=== PATIENT | female | born 1990 | race Caucasian/White ===

== ENCOUNTER → 2017-10-02 | Outpatient (CLI) | payer MEDICAID ==
[2017-10-02 12:23] LABS: ABSOLUTE EOSINOPHILS # (AUTO) 0.2 10^3/uL (0.0-0.6); ABSOLUTE LYMPHOCYTES (AUTO) 2.1 10^3/uL (0.5-4.7); ABSOLUTE MONOCYTES (AUTO) 0.6 10^3/uL (0.1-1.4); ABSOLUTE NEUT (AUTO) 5.9 10^3/uL (1.7-8.2); BASOPHILS % (AUTO) 0.4 % (0-2); EOSINOPHILS % (AUTO) 2.4 % (0-6); HEMATOCRIT 47.3 % (36.0-47.0); HGB HCT DIFFERENCE 0.7; MEAN CORPUSCULAR HGB CONC 33.9 g/dL (32.0-36.0); MEAN CORPUSCULAR VOLUME 95 fl (80-97); MONOCYTES % (AUTO) 6.7 % (3-13); RED CELL DISTRIBUTION WIDTH 14.3 % (11.5-14.0); SEGMENTED NEUTROPHILS % (AUTO) 66.5 % (42-78); WHITE BLOOD COUNT 8.9 10^3/uL (4.0-10.5)
[2017-10-02 12:53] LABS: ALANINE AMINOTRANSFERASE 29 U/L (9-52); ALBUMIN 3.1 g/dL (3.5-5.0); ALKALINE PHOSPHATASE 50 U/L (38-126); ANION GAP 8 (5-19); ASPARTATE AMINO TRANSFERASE 19 U/L (14-36); BILIRUBIN,DIRECT 0.1 mg/dL (0.0-0.4); BILIRUBIN,TOTAL 0.5 mg/dL (0.2-1.3); BLOOD UREA NITROGEN 7 mg/dL (7-20); CALCIUM 8.5 mg/dL (8.4-10.2); CARBON DIOXIDE 27 mmol/L (22-30); CHLORIDE 106 mmol/L (98-107); CHOLESTEROL 163.21 mg/dL (0-200); CREATININE RESULT 0.68 mg/dL (0.52-1.25); Direct HDL 41 mg/dL (>40); GLUCOSE 71 mg/dL (75-110); POTASSIUM 4.2 mmol/L (3.6-5.0); TOTAL PROTEIN 5.3 g/dL (6.3-8.2); TRIGLYCERIDES 56 mg/dL (<150)
[2017-10-02 13:04] LABS: DIRECT LDL 120 mg/dL (<100)
== END ==
LOC: OD 11:11
PROVIDERS: ATTEND Family Medicine Geriatric Medicine
DX: E66.3 Overweight (principal); Z86.711 Personal history of pulmonary embolism; Z87.891 Personal history of nicotine dependence; Z29.9 Encounter for prophylactic measures, unspecified; Z79.899 Other long term (current) drug therapy
CPT/HCPCS: 36415; 80053; 80061; 84443; 85025

== ENCOUNTER → 2017-10-18 | Outpatient (CLI) | payer MEDICAID ==
[2017-10-18 14:28] LABS: ABSOLUTE EOSINOPHILS # (AUTO) 0.1 10^3/uL (0.0-0.6); ABSOLUTE LYMPHOCYTES (AUTO) 2.1 10^3/uL (0.5-4.7); ABSOLUTE MONOCYTES (AUTO) 0.7 10^3/uL (0.1-1.4); ABSOLUTE NEUT (AUTO) 7.1 10^3/uL (1.7-8.2); BASOPHILS % (AUTO) 0.4 % (0-2); EOSINOPHILS % (AUTO) 0.8 % (0-6); HEMATOCRIT 40.5 % (36.0-47.0); HEMOGLOBIN 13.6 g/dL (12.0-15.5); LYMPHOCYTES % (AUTO) 20.8 % (13-45); MEAN CORPUSCULAR HEMOGLOBIN 31.6 pg (27.0-33.4); MEAN CORPUSCULAR HGB CONC 33.6 g/dL (32.0-36.0); MEAN CORPUSCULAR VOLUME 94 fl (80-97); PLATELET COUNT 239 10^3/uL (150-450); RED BLOOD COUNT 4.31 10^6/uL (3.72-5.28); RED CELL DISTRIBUTION WIDTH 13.8 % (11.5-14.0); TOTAL CELLS COUNTED % (AUTO) 100 %
== END ==
LOC: OD 13:27
PROVIDERS: ATTEND Family Medicine Geriatric Medicine
DX: R79.89 Other specified abnormal findings of blood chemistry (principal); R71.8 Other abnormality of red blood cells; Z79.899 Other long term (current) drug therapy
CPT/HCPCS: 36415; 85025

== ENCOUNTER 2017-10-26 09:38 | Day surgery (SDC) | payer MEDICAID ==
[~2017-10-26 09:38] MED LIST: LACTATED RINGERS 1000 ML IV PRN; LIDOCAINE 0.5% INJ-PF (5 MG/ML) 50 ML SDV SUBCUT PRN
[2017-10-26] MEDS ORDERED: BUPIVACAINE HCL 0.25 % INJ/PF (2.5 MG/1 ML) 30 ML VIAL ONE (09:47)
[2017-10-26] MEDS ORDERED: SCOPOLAMINE HYDROBROMIDE 1.5 MG PATCH.TD72 ONE (10:45)
[2017-10-26] MEDS ORDERED: FAMOTIDINE INJ/PF 20 MG/2 ML SDV IV ONE (10:45)
[2017-10-26] MEDS ORDERED: EPHEDRINE SULFATE INJ 50 MG/1 ML AMPULE ONE (10:47)
[2017-10-26] MEDS ORDERED: FENTANYL CITRATE INJ/PF 100 MCG/2 ML AMPUL ONE ×3 (10:47)
[2017-10-26] MEDS ORDERED: MIDAZOLAM 2 MG/2 ML INJ ONE (10:47)
[2017-10-26] MEDS ORDERED: ALBUTEROL SULFATE 0.083% NEB 2.5 MG/3 ML AMPUL NEB ONE (10:48)
[2017-10-26] MEDS ORDERED: ONDANSETRON HCL INJ/PF 4 MG/2 ML SDV ONE (10:48)
[2017-10-26] MEDS ORDERED: PROPOFOL INJ 200 MG/20 ML VIAL IV ONE (10:48)
[2017-10-26] MEDS ORDERED: PROMETHAZINE HCL INJ 25 MG/1 ML VIAL IV PRN (11:25)
[2017-10-26] MEDS ORDERED: FENTANYL CITRATE INJ/PF 100 MCG/2 ML AMPUL IV PRN ×3 (11:25)
[2017-10-26] MEDS ORDERED: DIPHENHYDRAMINE HCL 50 MG/ML VIAL IV PRN (11:25)
[2017-10-26] MEDS ORDERED: ACETAMINOPHEN 100 ML IV ONE (11:55)
[2017-10-26] MEDS: HYDROMORPHONE HCL INJ/PF 2 MG/ML AMPULE ONE ×2 (12:00→12:10)
--- NOTE | 2017-10-26 12:03 | OPERATIVE REPORT E ---
Operative Report NAME: RENEE GOMEZ : 1990 AGE: 27Y DATE OF SURGERY: 10/26/2017 ROOM: PREOPERATIVE DIAGNOSIS: Desires sterilization. POSTOPERATIVE DIAGNOSIS: Desires sterilization. PROCEDURES: 1. Bilateral tubal occlusion used on Filshie clips. 2. Removal of IUD. SURGEON: Gab FISH M.D. ESTIMATED BLOOD LOSS: Negligible. TISSUE REMOVED OR ALTERED: No tissue was removed. ANESTHESIA: General. DESCRIPTION OF PROCEDURE: The patient was placed in the dorsal lithotomy position, prepped and draped in a sterile fashion. A speculum was placed, cervix was visualized and grasped with a single-toothed tenaculum. The IUD was removed. Hulka tenaculum was placed. Single-toothed tenaculum was removed. Speculum was removed. Attention was turned to the abdomen where a subumbilical *------* incision was made. The trocar was introduced and was placed in the abdomen. I then introduced the laparoscope with visualization of tubes, uterus, and ovaries. All appeared to be normal. A right fallopian tube was banded in the mid portion using Filshie clip with good purchase of tissue being noted. Procedure was repeated on the left again with a good *------* of tissue being noted. No other abnormalities were noted. The laparoscope was removed and deflated. Trocar sleeve was removed. The incision closed with 0 Vicryl for the fascia, 4-0 Vicryl subcu for the skin, and patient tolerated the procedure well and was taken to the recovery room in good condition. Noted that after speculum was removed, bladder was drained with an in-and-out cath. DICTATING PHYSICIAN: Gab FISH M.D. [id number] PHY#: [id number] ID: [id number] JOB#: [id number] ACCT: [id number] cc:Gab FISH M.D. >
[2017-10-26] MEDS ORDERED: OXYCODONE-ACETAMINOPHEN 5-325 MG TABLET PO PRN (12:32)
[2017-10-26] MEDS ORDERED: ONDANSETRON 4 MG TAB.RAPDIS PO PRN (12:34)
[2017-10-26] MEDS ORDERED: IBUPROFEN 800 MG TABLET PO SCH (14:00)
[2017-10-26 15:53] VITALS: BP 110/72
== END 2017-10-26 14:15 | disposition home or self-care (01) ==
LOC: OROUT 09:38
PROVIDERS: ATTEND Obstetrics & Gynecology Gynecology
PROC: 0UPD7HZ Removal of Contraceptive Device from Uterus and Cervix, Via Natural or Artificial Opening (ICD-10-PCS; 2017-10-26)
PROC: 0UL74CZ Occlusion of Bilateral Fallopian Tubes with Extraluminal Device, Percutaneous Endoscopic Approach (ICD-10-PCS; principal; 2017-10-26 11:30)
DX: Z30.2 Encounter for sterilization (principal); Z87.891 Personal history of nicotine dependence; Z86.711 Personal history of pulmonary embolism; Z30.432 Encounter for removal of intrauterine contraceptive device
CPT/HCPCS: 81025; 88300 ×2; 58671; 58301; J2250; J3010; J3490; J1170; J2405; J2704; S0028; J0131; 851

== ENCOUNTER 2017-10-27 12:54 | Emergency (ER) | payer MEDICAID ==
[2017-10-27 13:01] VITALS: BP 113/60
--- NOTE | 2017-10-27 14:10 | ER Document Report ---
ED Medical Screen (RME) - General Chief Complaint: Chest Pain Stated Complaint: CHEST PAIN Time Seen by Provider: 10/27/17 14:01 Notes: 27-year-old female patient had IUD removed and tubes tied yesterday. Done under general anesthesia. Woke up today with anterior chest pain going into the neck and jaws. Pain in the upper thoracic scapular back region. Past medical history significant for pulmonary emboli 2011, source not identified per patient. Brief exam shows tenderness to palpate the left parasternal region of the chest. Some pain to left anterior chest. Very tender to palpate the upper medial scapular muscles and upper thoracic paravertebral muscles. I have greeted and performed a rapid initial assessment of this patient. A comprehensive ED assessment and evaluation of the patient, analysis of test results and completion of the medical decision making process will be conducted by additional ED providers. TRAVEL OUTSIDE OF THE [place] IN LAST 30 DAYS: No - Related Data Allergies/Adverse Reactions: No Known Drug Allergies Allergy (Verified 10/27/17 12:55) Past Medical History - Social History Frequency of alcohol use: Occasional Drug Abuse: None - Past Medical History Cardiac Medical History: Reports: Hx Pulmonary Embolism Renal/ Medical History: Denies: Hx Peritoneal Dialysis Past Surgical History: Reports: Hx Section, Hx Tonsillectomy, Hx Tubal Ligation - Immunizations Immunizations up to date: Yes Hx Diphtheria, Pertussis, Tetanus Vaccination: Yes Physical Exam - Vital signs Vitals: Temp Pulse Resp BP Pulse Ox 97.7 F 80 12 113/60 100 10/27/17 13:00 10/27/17 13:00 10/27/17 13:00 10/27/17 13:00 10/27/17 13:00 Course - Vital Signs Vital signs: Temp Pulse Resp BP Pulse Ox 97.7 F 80 12 113/60 100 10/27/17 13:00 10/27/17 13:00 10/27/17 13:00 10/27/17 13:00 10/27/17 13:00
[2017-10-27 14:40] LABS: ABSOLUTE EOSINOPHILS # (AUTO) 0.1 10^3/uL (0.0-0.6); ABSOLUTE LYMPHOCYTES (AUTO) 2.2 10^3/uL (0.5-4.7); ABSOLUTE MONOCYTES (AUTO) 0.6 10^3/uL (0.1-1.4); ABSOLUTE NEUT (AUTO) 5.5 10^3/uL (1.7-8.2); BASOPHILS % (AUTO) 0.5 % (0-2); EOSINOPHILS % (AUTO) 0.7 % (0-6); HEMATOCRIT 44.1 % (36.0-47.0); HEMOGLOBIN 14.6 g/dL (12.0-15.5); LYMPHOCYTES % (AUTO) 26.2 % (13-45); MEAN CORPUSCULAR HEMOGLOBIN 31.6 pg (27.0-33.4); MEAN CORPUSCULAR HGB CONC 33.2 g/dL (32.0-36.0); MEAN CORPUSCULAR VOLUME 95 fl (80-97); MONOCYTES % (AUTO) 6.6 % (3-13); PLATELET COUNT 235 10^3/uL (150-450); RED BLOOD COUNT 4.64 10^6/uL (3.72-5.28); RED CELL DISTRIBUTION WIDTH 13.6 % (11.5-14.0); TOTAL CELLS COUNTED % (AUTO) 100 %; WHITE BLOOD COUNT 8.3 10^3/uL (4.0-10.5)
[2017-10-27 14:42] LABS: APPEARANCE,URINE CLEAR; BILIRUBIN,URINE NEGATIVE (NEGATIVE); COLOR,URINE YELLOW; GLUCOSE, URINE NEGATIVE (NEGATIVE); KETONES,URINE NEGATIVE (NEGATIVE); LEUKOCYTE ESTERASE,URINE NEGATIVE (NEGATIVE); NITRITE,URINE NEGATIVE (NEGATIVE); PROTEIN,URINE NEGATIVE (NEGATIVE); URINE SPECIFIC GRAVITY 1.013; UROBILINOGEN,URINE NEGATIVE mg/dL (<2.0)
--- NOTE | 2017-10-27 14:47 | RADIOLOGY REPORT (SQ) ---
EXAM DESCRIPTION: CTA CHEST COMPLETED DATE/TIME: 10/27/2017 2:37 pm REASON FOR STUDY: chest,neck,back pain,s/p pelvic surgery,prior PE COMPARISON: None. TECHNIQUE: CT scan of the chest performed using helical scanning technique with dynamic intravenous contrast injection. Images reviewed with lung, soft tissue and bone windows. Reconstructed coronal and sagittal MPR images reviewed. Additional 3 dimensional post-processing performed to develop Maximal Intensity Projection images (MN P). All images stored on PACS. All CT scanners at this facility use dose modulation, iterative reconstruction, and/or weight based d osing when appropriate to reduce radiation dose to as low as reasonably achievable (ALARA). [facility]: Dose Right [facility]: CareDose [facility]: Dose Right [facility]: Teradose 4D [facility]: [employer] CONTRAST TYPE AND DOSE: contrast/concentration: Isovue 370.00 mg/ml; Total Contrast Delivered: 72.0 ml; Total Saline Delivered: 110.0 ml Contrast bolus optimized for the pulmonary arteries. Not diagnostic for the aorta. RENAL FUNCTION: None required. The patient is less than 50 years old. RADIATION DOSE: CT Rad equipment meets quality standard of care and radiation dose reduction techniq ues were employed. CTDIvol: 15.4 - 16.5 mGy. DLP: 615 mGy-cm. . LIMITATIONS: None. FINDINGS: LUNGS AND PLEURA: No masses, infiltrates, pneumothorax. No pleural effusions, calcificati ons. AORTA AND GREAT VESSELS: No aneurysm. Contrast bolus not optimized for the aorta. HEART: No pericardial effusion. No significant coronary artery calcifications. PULMONARY ARTERIES: No emboli visualized in the main pulmonary arteries or the segmental branches. HILAR AND MEDIASTINAL STRUCTURES: No identified masses or abnormal nodes. HARDWARE: None in the chest. UPPER ABDOMEN: Small amount of free intraperitoneal air. No additional acute or significant findings . THYROID AND OTHER SOFT TISSUES: No masses. No adenopathy. BONES: No acute or significant finding. 3D MIPS: Confirm above findings. OTHER: No other significant finding. IMPRESSION: NORMAL CTA OF THE CHEST. NO PULMONARY EMBOLI. SMALL AMOUNT OF FREE INTRAPERITONEAL AIR LIKELY WITHIN NORMAL LIMITS FOR RECENT SURGERY. COMMENT: Quality ID # [id number]: Final reports with documentation of one or more dose reduction techniques (e.g., Automated exposure control, adjustment of the mA and/or kV according to patient size, use of iterative reconstruction technique) TECHNICAL DOCUMENTATION: JOB ID: [id number] [employer]- All Rights Reserved
[2017-10-27 14:52] LABS: ALANINE AMINOTRANSFERASE 29 U/L (9-52); ALBUMIN 3.9 g/dL (3.5-5.0); ALKALINE PHOSPHATASE 42 U/L (38-126); ANION GAP 9 (5-19); ASPARTATE AMINO TRANSFERASE 23 U/L (14-36); BILIRUBIN,DIRECT 0.1 mg/dL (0.0-0.4); BILIRUBIN,TOTAL 0.4 mg/dL (0.2-1.3); BLOOD UREA NITROGEN 8 mg/dL (7-20); CALCIUM 9.3 mg/dL (8.4-10.2); CARBON DIOXIDE 28 mmol/L (22-30); CHLORIDE 102 mmol/L (98-107); GLUCOSE 77 mg/dL (75-110); POTASSIUM 4.5 mmol/L (3.6-5.0); SODIUM 139.1 mmol/L (137-145)
--- NOTE | 2017-10-27 15:11 | ER Document Report ---
ED General - General Chief Complaint: Chest Pain Stated Complaint: CHEST PAIN Time Seen by Provider: 10/27/17 14:01 Mode of Arrival: Ambulatory Information source: Patient, [facility] Records TRAVEL OUTSIDE OF THE [place] IN LAST 30 DAYS: No - Related Data Allergies/Adverse Reactions: No Known Drug Allergies Allergy (Verified 10/27/17 12:55) Past Medical History - Social History Smoking Status: Former Smoker Frequency of alcohol use: Occasional Drug Abuse: None Family History: Reviewed & Not Pertinent Patient has suicidal ideation: No Patient has homicidal ideation: No - Past Medical History Cardiac Medical History: Reports: Hx Pulmonary Embolism Renal/ Medical History: Denies: Hx Peritoneal Dialysis Past Surgical History: Reports: Hx Section, Hx Tonsillectomy, Hx Tubal Ligation - Immunizations Immunizations up to date: Yes Hx Diphtheria, Pertussis, Tetanus Vaccination: Yes Physical Exam - Vital signs Vitals: Temp Pulse Resp BP Pulse Ox 97.7 F 80 12 113/60 100 10/27/17 13:00 10/27/17 13:00 10/27/17 13:00 10/27/17 13:00 10/27/17 13:00 Course - Vital Signs Vital signs: Temp Pulse Resp BP Pulse Ox 97.7 F 80 12 113/60 100 10/27/17 13:00 10/27/17 13:00 10/27/17 13:00 10/27/17 13:00 10/27/17 13:00 - Laboratory Result Diagrams: 10/27/17 14:15 10/27/17 14:15 Laboratory results interpreted by me: 10/27/17 10/27/17 14:15 14:15 Total Protein 6.0 L Urine Blood MODERATE H Discharge - Discharge Clinical Impression: Chest wall pain following surgery, Pain in scapula Condition: Stable Disposition: HOME, SELF-CARE Additional Instructions: The CT scan of your chest does not show evidence of blood clots. Physical exam suggests the chest pain and upper back pain is related to muscle strain, possibly from being moved about on the table while you were intubated. Take the pain medication you were prescribed by your doctor if needed. Rest. Follow-up with your doctor Sunday if not improving. I have greeted and performed a rapid initial assessment of this patient. A comprehensive ED assessment and evaluation of the patient, analysis of test results and completion of the medical decision making process will be conducted by additional ED providers.
== END 2017-10-27 15:33 | disposition home or self-care (01) ==
LOC: ER 12:54
DX: G89.18 Other acute postprocedural pain (principal); R07.89 Other chest pain; M89.8X1 Other specified disorders of bone, shoulder; Z87.891 Personal history of nicotine dependence; Z86.711 Personal history of pulmonary embolism
CPT/HCPCS: 36415; 71275; 80053; 81001; 85025; 99285

== ENCOUNTER → 2018-02-28 | Outpatient (CLI) | payer MEDICAID ==
[2018-02-28 17:33] LABS: ALANINE AMINOTRANSFERASE 26 U/L (9-52); CHOLESTEROL 161.11 mg/dL (0-200); TRIGLYCERIDES 64 mg/dL (<150)
[2018-02-28 17:44] LABS: DIRECT LDL 93 mg/dL (<100)
== END ==
LOC: OD 16:01
PROVIDERS: ATTEND Family Medicine Geriatric Medicine
DX: E78.5 Hyperlipidemia, unspecified (principal); E66.3 Overweight
CPT/HCPCS: 36415; 80061; 84460

== ENCOUNTER → 2018-05-31 | Outpatient (CLI) | payer MEDICAID ==
[2018-06-02 06:21] LABS: ANTITHROMBIN III ACTIVITY 101 % (75-135); ANTITHROMBIN III ANTIGEN 89 % (72-124); PROTEIN S FREE 91 % (57-157); PROTEIN S FUNCTIONAL 75 % (63-140); PROTEIN S TOTAL 56 % (60-150)
[2018-06-03 14:39] LABS: PROTEIN C ANTIGEN 88 % (60-150)
[2018-06-04 07:35] LABS: PROTEIN C ACTIVITY 102 % (73-180)
== END ==
LOC: OD 11:15
PROVIDERS: ATTEND Family Medicine
DX: Z86.718 Personal history of other venous thrombosis and embolism (principal)
CPT/HCPCS: 36415; 81241; 85300; 85301; 85302; 85305; 85306; 85597; 85598; 85613; 85730; 85732; 86146; 86147; 86148; 86849

== ENCOUNTER → 2018-11-25 | Outpatient (CLI) | payer MEDICAID ==
[2018-11-25 10:53] LABS: A TYPE INFLUENZA AG NEGATIVE (NEGATIVE); B INFLUENZA AG NEGATIVE (NEGATIVE)
== END ==
LOC: OD 10:06
PROVIDERS: ATTEND Family Medicine Geriatric Medicine
DX: J01.40 Acute pansinusitis, unspecified (principal); R05 Cough
CPT/HCPCS: 87804

== ENCOUNTER → 2019-04-16 | Outpatient (CLI) | payer MEDICAID ==
--- NOTE | 2019-04-17 09:26 | RADIOLOGY REPORT (SQ) ---
EXAM DESCRIPTION: CHEST PA/LATERAL COMPLETED DATE/TIME: 04/16/2019 4:55 pm REASON FOR STUDY: R05 COMPARISON: 08/14/2011 EXAM PARAMETERS: NUMBER OF VIEWS: two views TECHNIQUE: Digital Frontal and Lateral radiographic views of the chest acquired. RADIATION DOSE: NA LIMITATIONS: none FINDINGS: LUNGS AND PLEURA: No opacities, masses or pneumothorax. No pleural effusion. MEDIASTINUM AND HILAR STRUCTURES: No masses or contour abnormalities. HEART AND VASCULAR STRUCTURES: Heart normal size. No evidence for failure. BONES: No acute findings. HARDWARE: None in the chest. OTHER: No other significant finding. IMPRESSION: 1. No significant interval changes since the prior study dated 08/14/2011. No acute fi ndings. TECHNICAL DOCUMENTATION: JOB ID: [id number] [employer]- All Rights Reserved Reading location - IP/workstation name: [email or web address]
== END ==
LOC: OD 16:39
PROVIDERS: ATTEND Family Medicine Geriatric Medicine
DX: R05 Cough (principal)
CPT/HCPCS: 71046

== ENCOUNTER → 2019-08-29 | Outpatient (CLI) | payer MEDICAID ==
--- NOTE | 2019-08-29 15:09 | RADIOLOGY REPORT (SQ) ---
EXAM DESCRIPTION: WRIST LEFT 2 VIEWS COMPLETED DATE/TIME: 08/29/2019 2:53 pm REASON FOR STUDY: PAIN IN LEFT WRIST; RT ANKLE PAIN M25.532 PAIN IN LEFT WRIST M25.571 PAIN IN RIG HT ANKLE AND JOINTS OF RIGHT FOOT COMPARISON: None. NUMBER OF VIEWS: Two views. TECHNIQUE: AP and lateral radiographic images acquired of the left wrist. LIMITATIONS: None. FINDINGS: MINERALIZATION: Normal. BONES: No acute fracture or dislocation. No worrisome bone lesions. Normal alignment. No significant osteophytes. JOINTS: No erosions. No rivas-articular osteopenia. No chondrocalcinosis. SOFT TISSUES: No swelling. No calcifications. OTHER: No other significant finding. IMPRESSION: NEGATIVE STUDY OF THE LEFT WRIST. NO EXPLANATION FOR PAIN. TECHNICAL DOCUMENTATION: JOB ID: [id number] [employer]- All Rights Reserved Reading location - IP/workstation name: [email or web address]
--- NOTE | 2019-08-29 15:10 | RADIOLOGY REPORT (SQ) ---
EXAM DESCRIPTION: ANKLE RIGHT AP/LATERAL COMPLETED DATE/TIME: 08/29/2019 2:53 pm REASON FOR STUDY: PAIN IN LEFT WRIST; RT ANKLE PAIN M25.532 PAIN IN LEFT WRIST M25.571 PAIN IN RIG HT ANKLE AND JOINTS OF RIGHT FOOT COMPARISON: None. NUMBER OF VIEWS: Two views. TECHNIQUE: AP and lateral without weight bearing radiographic images acquired of the right ankle. LIMITATIONS: None. FINDINGS: MINERALIZATION: Normal. BONES: No acute fracture or dislocation. No worrisome bone lesions. No significant osteophytes. JOINTS: No effusions. SOFT TISSUES: No soft tissue swelling. No foreign body. OTHER: No other significant finding. IMPRESSION: NO SIGNIFICANT FINDING IN THE RIGHT ANKLE. NO EXPLANATION FOR PAIN. TECHNICAL DOCUMENTATION: JOB ID: [id number] [employer]- All Rights Reserved Reading location - IP/workstation name: [email or web address]
== END ==
LOC: OD 14:24
PROVIDERS: ATTEND Family Medicine
DX: M25.532 Pain in left wrist (principal); M25.571 Pain in right ankle and joints of right foot

== ENCOUNTER → 2020-08-03 | Outpatient (CLI) | payer MEDICAID, OTHER ==
[2020-08-03 09:54] LABS: T.VAGINALIS (WET MOUNT) NO TRICHOMONAS SEEN; YEAST (WET MOUNT) NO YEAST SEEN
[2020-08-03 09:55] LABS: BACTERIA (WET MOUNT) 4+ BACTERIA SEEN; EPITHELIALS (WET MOUNT) 4+ EPITHELIALS SEEN; RBCS (WET MOUNT) NO RBCS SEEN; WBCS (WET MOUNT) 2+ WBCS SEEN
[2020-08-03 16:05] LABS: CHLAM PCR NOT DETECTED (NOT DETECT)
[2020-08-04 06:59] LABS: HEPATITIS B SURFACE AB QUAL Reactive (.); HEPATITS B SURFACE ANTIGEN Negative (Negative)
== END ==
LOC: OD 09:30
PROVIDERS: ATTEND Family Medicine
DX: Z11.3 Encounter for screening for infections with a predominantly sexual mode of transmission (principal); N30.00 Acute cystitis without hematuria
CPT/HCPCS: 36415; 86592; 86701; 86706; 86803; 86804; 87086; 87210; 87340; 87491; 87591

== ENCOUNTER 2020-09-15 18:27 | Emergency (ER) | payer OTHER ==
--- NOTE | 2020-09-15 19:28 | ER Document Report ---
ED Medical Screen (RME) - General Chief Complaint: Fever Stated Complaint: FEVER Time Seen by Provider: 09/15/20 19:13 Primary Care Provider: EZEQUIEL DUNHAM MD [Primary Care Provider] - Follow up as needed Mode of Arrival: Ambulatory Information source: Patient Notes: Patient is a 30-year-old female comes emergency room with onset of fever and chills today. Patient states she is always home from work and felt chilled. She got home her temp of 100.20. She took 1 g of Tylenol at 6:30 PM and decided to come here. Patient states she also started with abdominal pain last Sunday use warm middle of lower abdominal area and suprapubically. Patient also states it is very quiet about it in triage she does not want her son to here but her partner has been exposed to an STD and she may have that as well. She is only had a history of a for surgical history. Currently she denies any nausea or vomiting still has moderate amount of suprapubic and mid lower abdominal discomfort. Physical examination: Patient is a well-nourished well-developed 30-year-old female no apparent distress on examination tonight. Cardiac: Patient is tachycardic at 107 bpm on monitor with a blood pressure of 121/57. Lungs: Bilateral breath sounds increased verification. Abdomen the sitting position patient is some mild tenderness suprapubically to palpation. Bowel sounds are present all 4 quads. I have greeted and performed a rapid initial assessment of this patient. A comprehensive ED assessment and evaluation of the patient, analysis of test results and completion of the medical decision making process will be conducted by additional ED providers. Dictation of this chart was performed using voice recognition software; therefore, there may be some unintended grammatical errors. TRAVEL OUTSIDE OF THE [place] IN LAST 30 DAYS: No - Related Data Allergies/Adverse Reactions: No Known Drug Allergies Allergy (Verified 10/27/17 12:55) Past Medical History - Social History Frequency of alcohol use: Occasional Drug Abuse: None - Past Medical History Cardiac Medical History: Reports: Hx Pulmonary Embolism Renal/ Medical History: Denies: Hx Peritoneal Dialysis Past Surgical History: Reports: Hx Section, Hx Tonsillectomy, Hx Tubal Ligation - Immunizations Immunizations up to date: Yes Hx Diphtheria, Pertussis, Tetanus Vaccination: Yes Physical Exam - Vital signs Vitals: Temp Pulse Resp BP Pulse Ox 99.5 F 107 H 18 121/57 L 98 09/15/20 19:01 09/15/20 19:01 09/15/20 19:01 09/15/20 19:01 09/15/20 19:01 Course - Vital Signs Vital signs: Temp Pulse Resp BP Pulse Ox 99.5 F 107 H 18 121/57 L 98 09/15/20 19:01 09/15/20 19:01 09/15/20 19:01 09/15/20 19:01 09/15/20 19:01 Doctor's Discharge - Discharge Referrals: EZEQUIEL DUNHAM MD [Primary Care Provider] - Follow up as needed
[2020-09-15 20:18] LABS: APPEARANCE,URINE CLEAR; BILIRUBIN,URINE NEGATIVE (NEGATIVE); COLOR,URINE YELLOW; GLUCOSE, URINE NEGATIVE (NEGATIVE); KETONES,URINE NEGATIVE (NEGATIVE); LEUKOCYTE ESTERASE,URINE MODERATE (NEGATIVE); NITRITE,URINE NEGATIVE (NEGATIVE); PROTEIN,URINE NEGATIVE (NEGATIVE)
[2020-09-15 20:37] LABS: ABSOLUTE LYMPHOCYTES (AUTO) 1.9 10^3/uL (0.5-4.7); ABSOLUTE MONOCYTES (AUTO) 0.8 10^3/uL (0.1-1.4); ABSOLUTE NEUT (AUTO) 8.9 10^3/uL (1.7-8.2); ALBUMIN 4.3 g/dL (3.5-5.0); ALKALINE PHOSPHATASE 63 U/L (38-126); ANION GAP 7 (5-19); ASPARTATE AMINO TRANSFERASE 21 U/L (14-36); BASOPHILS % (AUTO) 0.1 % (0-2); BILIRUBIN,TOTAL 0.5 mg/dL (0.2-1.3); BLOOD UREA NITROGEN 10 mg/dL (7-20); CALCIUM 9.3 mg/dL (8.4-10.2); CARBON DIOXIDE 27 mmol/L (22-30); CHLORIDE 100 mmol/L (98-107); EOSINOPHILS % (AUTO) 0.3 % (0-6); GLUCOSE 94 mg/dL (75-110); HEMATOCRIT 40.1 % (36.0-47.0); HEMOGLOBIN 13.7 g/dL (12.0-15.5); LYMPHOCYTES % (AUTO) 16.6 % (13-45); MEAN CORPUSCULAR HEMOGLOBIN 32.6 pg (27.0-33.4); MEAN CORPUSCULAR HGB CONC 34.1 g/dL (32.0-36.0); MEAN CORPUSCULAR VOLUME 96 fl (80-97); MONOCYTES % (AUTO) 6.8 % (3-13); PLATELET COUNT 212 10^3/uL (150-450); POTASSIUM 4.3 mmol/L (3.6-5.0); RED BLOOD COUNT 4.19 10^6/uL (3.72-5.28); RED CELL DISTRIBUTION WIDTH 12.9 % (11.5-14.0); SEGMENTED NEUTROPHILS % (AUTO) 76.2 % (42-78); TOTAL CELLS COUNTED % (AUTO) 100 %; TOTAL PROTEIN 7.1 g/dL (6.3-8.2); WHITE BLOOD COUNT 11.7 10^3/uL (4.0-10.5)
[2020-09-15] MEDS ORDERED: AZITHROMYCIN 250 MG TABLET PO ONE (21:02)
[2020-09-15] MEDS ORDERED: LIDOCAINE 1% INJ-PF (10 MG/ML) 30 ML SDV NEB ONE (21:03)
[2020-09-15] MEDS ORDERED: CEFTRIAXONE INJ 1000 MG VIAL IM ONE (21:03)
--- NOTE | 2020-09-15 21:09 | ER Document Report ---
ED General - General Chief Complaint: Fever Stated Complaint: FEVER Time Seen by Provider: 09/15/20 19:13 Primary Care Provider: EZEQUIEL DUNHAM MD [Primary Care Provider] - Follow up as needed Mode of Arrival: Ambulatory Notes: Patient presents to the ER for evaluation for lower abdominal pain that began approximately 1 week ago and fever that began today. She denies dysuria. She denies nausea or vomiting. She denies diarrhea. The patient states she has a good appetite. The patient states she recently entered into a relationship and was potentially exposed to gonorrhea. She denies vaginal discharge. She denies vaginal pain. She has had no pain with intercourse. Patient states she did take Tylenol 1 g prior to arrival. Nursing notes reviewed and past medical, social, and family histories reviewed and validated. TRAVEL OUTSIDE OF THE [place] IN LAST 30 DAYS: No - Related Data Allergies/Adverse Reactions: No Known Drug Allergies Allergy (Verified 10/27/17 12:55) Past Medical History - General Information source: Patient Last Menstrual Period: 1 week ago - Social History Smoking Status: Never Smoker Frequency of alcohol use: Occasional Drug Abuse: None Lives with: Family Family History: Reviewed & Not Pertinent Patient has suicidal ideation: No Patient has homicidal ideation: No - Past Medical History Cardiac Medical History: Reports: Hx Pulmonary Embolism Pulmonary Medical History: Reports: None EENT Medical History: Reports: None Neurological Medical History: Reports: None Endocrine Medical History: Reports: None Renal/ Medical History: Reports: None. Denies: Hx Peritoneal Dialysis Malignancy Medical History: Reports: None GI Medical History: Reports: None Musculoskeletal Medical History: Reports None Skin Medical History: Reports None Psychiatric Medical History: Reports: None Traumatic Medical History: Reports: None Infectious Medical History: Reports: None Past Surgical History: Reports: Hx Section, Hx Tonsillectomy, Hx Tubal Ligation - Immunizations Immunizations up to date: Yes Hx Diphtheria, Pertussis, Tetanus Vaccination: Yes Review of Systems - Review of Systems Notes: Constitutional: Positive for fever. HENT: Negative for sore throat. Eyes: Negative for visual changes. Cardiovascular: Negative for chest pain. Respiratory: Negative for shortness of breath. Gastrointestinal: Positive for lower abdominal pain. Negative vomiting or diarrhea. Genitourinary: Negative for dysuria. Musculoskeletal: Negative for low back pain. Skin: Negative for rash. Neurological: Negative for headaches, weakness or numbness. 10 point ROS negative except as marked above and in HPI. Physical Exam - Vital signs Vitals: Temp Pulse Resp BP Pulse Ox 99.5 F 107 H 18 121/57 L 98 09/15/20 19:01 09/15/20 19:01 09/15/20 19:01 09/15/20 19:01 09/15/20 19:01 - Notes Notes: CONSTITUTIONAL: Well appearing. No acute distress. SKIN: Warm, dry, and intact without rash EYES: Extraocular movements are grossly intact, clear conjunctiva HENT: Normocephalic, atraumatic, moist mucus membranes NECK: No obvious swelling, normal range of motion PULMONARY: Normal chest rise and fall. Breath sounds clear and equal bilaterally. No respiratory distress or stridor CARDIOVASCULAR: Regular rate. No murmurs, rubs, gallops. Distal extremities are warm and well perfused. ABDOMINAL: The abdomen is soft. There is mild tenderness noted over the bladder. NEUROLOGIC: Normal speech, moves all extremities. Cranial nerves are within normal limits. MUSCULOSKELETAL: No gross deformities, atraumatic PSYCHIATRIC: Normal mood and affect Course - Re-evaluation Re-evalutation: 09/15/20 21:11 Rechecked patient who has responded well to treatment in the ER. Discussed with patient: results, diagnosis, treatment plan, and need for follow-up. Return to the emergency department warnings were given. All questions and concerns were addressed. The plan is agreed with and understood. Patient is stable and ready for discharge. - Vital Signs Vital signs: Temp Pulse Resp BP Pulse Ox 99.5 F 107 H 18 121/57 L 98 09/15/20 19:01 09/15/20 19:01 09/15/20 19:01 09/15/20 19:01 09/15/20 19:01 - Laboratory Result Diagrams: 09/15/20 20:10 09/15/20 20:10 Laboratory results interpreted by me: 09/15/20 09/15/20 09/15/20 19: 19:31 20:10 WBC 11.7 H Absolute Neuts (auto) 8.9 H Sodium Urine Urobilinogen 2.0 H Ur Leukocyte Esterase MODERATE H Chlamydia DNA (PCR) DETECTED H N.gonorrhoeae DNA (PCR) DETECTED H 09/15/20 20:10 WBC Absolute Neuts (auto) Sodium 134.0 L Urine Urobilinogen Ur Leukocyte Esterase Chlamydia DNA (PCR) N.gonorrhoeae DNA (PCR) Discharge - Discharge Clinical Impression: Chlamydia infection, GC infection of lower tract, acute Disposition: HOME, SELF-CARE Instructions: Chlamydia (OM), Gonorrhea (OM) Prescriptions: Doxycycline Hyclate 150 mg PO BID 10 Days #20 tablet Forms: Return to Work Referrals: EZEQUIEL DUNHAM MD [Primary Care Provider] - Follow up as needed
[2020-09-15 21:29] LABS: CHLAM PCR DETECTED (NOT DETECT)
[2020-09-15 22:33] VITALS: BP 108/65
== END 2020-09-15 22:33 | disposition home or self-care (01) ==
LOC: ER 18:27
DX: A74.9 Chlamydial infection, unspecified (principal); A54.00 Gonococcal infection of lower genitourinary tract, unspecified; R50.9 Fever, unspecified; R10.30 Lower abdominal pain, unspecified; Z98.51 Tubal ligation status
CPT/HCPCS: 99284; 96372; 36415; 85025; 81025; 80053; 81001; 87491; 87591; J3490; J0696